=== PATIENT | male | born 1985 | race African-American/Black ===

== ENCOUNTER 2021-01-09 08:57 | Emergency (ER) | payer OTHER ==
[~2021-01-09] VITALS: Ht 177.8 cm; Wt 95.0 kg
[2021-01-09 09:06] VITALS: BP 98/89
[2021-01-09] MEDS ORDERED: INDO50CA15 PO ×2 (10:11→10:35)
[2021-01-09] MEDS ORDERED: PRED20TA PO (10:35)
== END 2021-01-09 10:45 | disposition home or self-care (01) ==
LOC: ER 08:57
DX: M10.9 Gout, unspecified (principal); M79.671 Pain in right foot
CPT/HCPCS: 96374; 96375; 99284; J1885; J2270